=== PATIENT | female | born 1980 | race Caucasian/White ===

== ENCOUNTER 2024-05-08 10:43 | Outpatient (AMB) | payer OTHER, SELFPAY ==
--- NOTE | 2024-05-08 10:45 | MHC.OFFVIS ---
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 Show Card Letterer Required: No Allergies No Known Allergies Allergy (Verified 05/08/24 10:50) Medication List - Last Reconciled 05/08/24 by Jessica Brothers MD hydroxyzine HCl 10 mg PO TID PRN ondansetron 4 mg PO Q8H tirzepatide 2.5 mg subcut QWEEK HPI Comments Details: 44y/o female comes for evaluation of headaches, right am tingling, left shoulder tingling, neck pain. The tingling episodes started about 1 year ago . It was mostly in her right arm , with some shooting sensation . It lasted about 2 days with some throbbing . she did not have headaches or neck pain at that time. The episodes were sporadic 1/week. 6 mths ago she started noticing neck pain, headaches and left shoulder tingling. she was referred to [facility]- had Brain MRI , neck Xray .MS was ruled out. she describes the headaches are occipitoparietal , tingling , with nausea, light sensitvity - feels like a band- can last 2 days . she has 0-1 /week she was taking ibuprofen and now she is on sumatriptan 25mg and prior to that she trialed on fiorinal. she gained 30-50 lbs since she turned 41 . she denies any shooting pain . she sleeps ok - but wake sup at 2am and is awake for 1 hr.No snoring . 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 [facility] Medical History (Updated 05/08/24 @ 11:43 by Jessica Brothers MD) Paresthesias Cervicalgia Tension headache Episodic tension type headache Anxiety and depression Surgical History Previous section Social History Alcohol intake: current Comment: occasional Patient Tobacco Use Status: Former Tobacco user Tobacco use type: Cigarette Physical Exam Vital Signs: Last Vital Signs Pulse 88 05/08/24 10:51 Resp 16 05/08/24 10:51 BMI result Body Mass Index 29.6 Const General: cooperative, healthy appearing and comfortable Nutritional Appearance: average body habitus Orientation/consciousness: patient oriented x3 Neuro Other: Neck - tightness in all muscles with restricted range of motion General: patient oriented x3, gait normal, tone normal and moves all extremities Cranial nerves: Yes Nystagmus not present and Yes Normal facial strength present Cognition (Neuro): normal cognition Gait exam (Neuro): Normal gait present Motor exam (neuro): 5/5 motor strength present throughout and Normal motor muscle tone present throughout Deep tendon reflexes (DTR's): Right triceps reflex intensity grade: 2+, Left triceps reflex intensity grade: 2+, Rt Biceps (C5, C6): 2+, Left biceps reflex intensity grade: 2+, Right brachioradialis reflex intensity grade: 2+, Left brachioradialis reflex intensity grade: 2+, Right patellar reflex intensity grade: 2+ and Left patellar reflex intensity grade: 2+ Coordination: [id number]-gj-[id number] test normal Results Reviewed Results Reviewed: MRI Brain - 11/10 - nonspecific white matter changes X ray neck- normal Assessment & Plan Assessment & Plan (1) Cervicalgia: Code(s): M54.2 - Cervicalgia Category: Medical (2) Tension headache: Code(s): G44.209 - Tension-type headache, unspecified, not intractable Category: Medical (3) Paresthesias: Code(s): R20.2 - Paresthesia of skin Category: Medical Plan Reviewed MRI and X ray reports She started with a chiropractor last week- suggested to continue, Neck exercises i will trial her on flexeril 5mg qhs \ magnesium 400mg qhs Medications: New magnesium oxide 400 mg PO BEDTIME 30 tabs 6RF cyclobenzaprine 5 mg PO BEDTIME 30 tabs 6RF Coding Level of Care Code New Pt Level 4 (52763) Diagnoses Cervicalgia M54.2 Tension headache G44.209 Paresthesias R20.2
[2024-05-08 10:51] VITALS: PULSE 88; RESP 16; BMI 29.6
== END 2024-05-08 11:52 | disposition home or self-care (01) ==
PROVIDERS: PCP Emergency Medicine Emergency Medical Services; Visit Provider Psychiatry & Neurology Neurology
DX: M54.2 Cervicalgia (principal); G44.209 Tension-type headache, unspecified, not intractable; R20.2 Paresthesia of skin
CPT/HCPCS: 99204

== ENCOUNTER → 2024-05-08 10:43 | Outpatient (BNVA) | payer OTHER, SELFPAY | PROVIDERS: PCP Emergency Medicine Emergency Medical Services; Visit Provider Psychiatry & Neurology Neurology | DX: M54.2 Cervicalgia (principal); G44.209 Tension-type headache, unspecified, not intractable; R20.2 Paresthesia of skin | CPT/HCPCS: 99202 ==

== ENCOUNTER 2025-05-20 12:09 | Outpatient (AMB) | payer OTHER, SELFPAY ==
--- NOTE | 2025-05-20 12:26 | MHC.OFFVIS ---
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 1 week before periods she gets episodes of tingling and sometimes headaches.The tingling lasts on and off for few days she has migraines 0-1/month. History from initial visit- 04/2024The tingling episodes started about 1 year ago . It was mostly in her right arm , with some shooting sensation . It lasted about 2 days with some throbbing . she did not have headaches or neck pain at that time. The episodes were sporadic 1/week. 6 mths ago she started noticing neck pain, headaches and left shoulder tingling. she was referred to [facility]- had Brain MRI , neck Xray .MS was ruled out. she describes the headaches are occipitoparietal , tingling , with nausea, light sensitvity - feels like a band- can last 2 days . she has 0-1 /week she was taking ibuprofen and now she is on sumatriptan 25mg and prior to that she trialed on fiorinal. she gained 30-50 lbs since she turned 41 . she denies any shooting pain . she sleeps ok - but wake sup at 2am and is awake for 1 hr.No snoring . 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 [facility] Medical History Paresthesias Cervicalgia Tension headache Episodic tension type headache Anxiety and depression Surgical History Previous section Social History Alcohol intake: current Comment: occasional Patient Tobacco Use Status: Former Tobacco user Tobacco use type: Cigarette Physical Exam Vital Signs: Last Vital Signs Pulse 86 05/20/25 12:28 BP 110/72 05/20/25 12:28 Pulse Ox 100 05/20/25 12:28 Oxygen Delivery Method Room Air 05/20/25 12:28 BMI result Body Mass Index 20.8 Const General: cooperative, healthy appearing and comfortable Nutritional Appearance: average body habitus Orientation/consciousness: patient oriented x3 Neuro Other: Neck - tightness in all muscles with restricted range of motion General: patient oriented x3, gait normal, tone normal and moves all extremities Cranial nerves: Yes Nystagmus not present and Yes Normal facial strength present Cognition (Neuro): normal cognition Gait exam (Neuro): Normal gait present Motor exam (neuro): 5/5 motor strength present throughout and Normal motor muscle tone present throughout Coordination: [id number]-[id number]-ezyd test normal Assessment & Plan Assessment & Plan (1) Cervicalgia: Code(s): M54.2 - Cervicalgia Category: Medical (2) Tension headache: Code(s): G44.209 - Tension-type headache, unspecified, not intractable Category: Medical (3) Paresthesias: Code(s): R20.2 - Paresthesia of skin Category: Medical Plan MRI Brain Sumatriptan 25 mg as needed Vit B 2 400mg qam flexeril 5mg qhs as needed magnesium 400mg qhs Orders: Orders MR head/brain wo con Today M54.2 - Cervicalgia, R20.2 - Paresthesia of skin Medications: New riboflavin (vitamin B2) 400 mg PO QAM 30 tabs 6RF Coding Level of Care Code Est Pt Level 4 (45060) Diagnoses Cervicalgia M54.2 Tension headache G44.209 Paresthesias R20.2
[2025-05-20 12:28] VITALS: BP 110/72; PULSE 86; O2SAT 100; BMI 20.8
--- OUTSIDE RECORDS SUMMARY | 2025-05-20 14:46 | XMS_ITS | Clinical Summary ---
Author Organization [facility] Address [address] [place] [address] Care Team Providers Care Technology Consultant Name Role Phone Yaneli Marquez NP Primary Care Provider [phone] Allergies No known active allergies Medications Medication Sig Dispensed Refills Start Date End Date Status hydrOXYzine (ATARAX) 10 MG tablet Take 1 tablet (10 mg total) by mouth every 12 (twelve) hours as needed. 0 06/26/2023 Active phentermine 15 MG capsule Take 1 capsule (15 mg total) by mouth every morning. 0 12/27/2023 Active Social History Tobacco Use Types Packs/Day Years Used Date Smoking Tobacco: Never Assessed Sex and Gender Information Value Date Recorded Sex Assigned at Not on file Gender Identity Not on file Sexual Orientation Not on file Job Start Date Occupation Industry Not on file Not on file Not on file Last Filed Vital Signs Vital Sign Reading Time Taken Comments Blood Pressure 127/84 01/21/2024 3:08 PM EDT Pulse 86 01/21/2024 3:08 PM EDT Temperature 36.2 C (97.1 F) 01/21/2024 3:08 PM EDT Respiratory Rate - - Oxygen Saturation 98% 01/21/2024 3:08 PM EDT Inhaled Oxygen Concentration - - Weight 80.1 kg (176 lb 9.6 oz) 01/21/2024 3:08 P M EDT Height 162.6 cm (5' 4 ) 01/21/2024 3:08 PM EDT Body Mass Index 30.31 01/21/2024 3:08 PM EDT Plan of Treatment Health Maintenance Due Date Last Done Comments Hepatitis B Vaccines (1 of 3 - 3-dose series) 1981 Hepatitis C Screening 1981 COVID-19 Vaccine (#1) 1981 Depression Screening 1993 BMI Counseling 1999 Preventative Health Evaluation 1999 Cervical Cancer Screening (P ap Smear) 2002 Influenza Vaccine (#1) 2025 DTap / Tdap / Td (2 - Td or Tdap) 07/19/2027 017 Pneumococcal Vaccine Aged Out No long er eligible based on patient's age to complete this topic RSV Ped < 20 months Aged Out No longe r eligible based on patient's age to complete this topic Care Teams Technology Consultant Relationship Specialty Start Date End Date Yaneli Marquez NP [address] [place] [address] PCP - General Family Medicine 11/14/23
--- OUTSIDE RECORDS SUMMARY | 2025-05-20 14:46 | XMS_ITS | Clinical Summary ---
Author Organization [facility] Address [address] [place] [address] Care Team Providers Care Material Requirements Worker Name Role Phone Yaneli Marquez NP Primary Care Provider Allergies No known active allergies Medications magnesium oxide (MAG-OX) 400 mg (241.3 elemental magnesium) tablet Take 1 tablet (400 mg total) by mouth. at bedtime 4 Active tirzepatide, weight loss, (Zepbound) 5 mg/0.5 mL injectionIndicatio ns:Hx of obesity Inject 0.5 mL (5 mg total) under the skin every 7 (seven) days. 2 mL 5 Active SUMAtriptan (IMITREX) 25 mg tabletIndications: Other migraine without status migrainosus, not intractable May repeat dose once in 2 hours if no relief. Do not exceed 2 doses in 24 hours. 9 tablet 2 5 Active ondansetron ODT (ZOFRAN-ODT) 4 mg disintegrating tabletIndications: Other migraine without status migrainosus, not intractable Take 1 tablet (4 mg total) by mouth 1 (one) time each day. 20 tablet 3 5 Active hydrOXYzine HCL (ATARAX) 10 mg tablet Take 1 tablet (10 mg total) by mouth every 12 (twelve) hours if needed for anxiety. 60 tablet 5 Active tirzepatide, weight loss, (Zepbound) 10 mg/0.5 mL injection Inject 0.5 mL (10 mg total) under the skin every 7 (seven) days for 28 days. 2 mL 5 06/10/20 25 Active hydrOXYzine HCL (ATARAX) 10 mg tablet Take 1 tablet (10 mg total) by mouth every 12 (twelve) hours if needed for anxiety. 60 tablet 5 04/24/20 25 Discontin ued(Reord er) ondansetron ODT (ZOFRAN-ODT) 4 mg disintegrating tabletIndications: Other migraine without status migrainosus, not intractable Take 1 tablet (4 mg total) by mouth 1 (one) time each day. 20 tablet 3 5 04/24/20 25 Discontin ued(Reord er) tirzepatide, weight loss, (Zepbound) 10 mg/0.5 mL injection Inject 0.5 mL (10 mg total) under the skin every 7 (seven) days for 28 days. 2 mL 5 05/13/20 25 Discontin ued(Reord er) Active Problems Problem Noted Date Diagnosed Date Class 1 obesity 11/13/2024 Multiple sclerosis (CMS/HCC V24, CMS/HCC V28) Overweight (BMI 25.0-29.9) 06/02/2024 Abnormal EKG 02/08/2023 Overview (11/13/2024): Had QT prolongation; was felt due to transient hypokalemia per cardiology no routine f/u needed Last Assessment & Plan: We did discuss her EKG. The EKG done in our office showed a prolonged QT interval. This was likely due to the fact that her potassium level was very low at that time. She was taking no medications at that time causes. She has no family history of sudden cardiac pacemakers or defibrillators. Her potassium level has subsequently improved. Her EKG today is normal. Again I suspect that this was due to an electrolyte disturbance. She is having no symptoms at this time and needs no further cardiovascular work-up. She will follow-up with us on an as-needed basis. Anxiety and depression 07/12/2022 Episodic tension-type headache, not intractable 02/10/2019 Encounters Date Type Department Care Team Description 05/14/2025 11:30 AM EDT Office Visit Bariatric Surgery [facility] [address] [facility] [address] [place] [address] America Vega PA Hx of obesity (Primary Dx) 04/01/2025 11:00 AM EDT Office Visit Internal Medicine - [facility] [address] [place] [address] Bernadine Lopez, JOSÉ Other migraine without status migrainosus, not intractable (Primary Dx); Benign paroxysmal positional vertigo, unspecified laterality 03/05/2025 9:00 AM EDT Office Visit Bariatric Surgery [facility] [address] [facility] [address] [place] [address] America Vega PA Hx of obesity (Primary Dx) from Last 3 Months Immunizations Name Administration Dates Next Due Tdap Tetanus diptheria acell ular pertussis (Boostrix; Adacel) 7yo and older 07/19/2017 Surgical History Surgery Date Site/Laterality Comments SECTION 2014 PROCEDURE: HISTORICAL DELIVERY Medical History Medical History Date Comments PMS (premenstrual syndrome) DX:P MS (premenstrual syndrome) Family History Medical History Relation Name Comments Depression Father Hyperlipidemia Father Heart attack Maternal Grandfather Other: hodgkins Maternal Grandmother Hyperlipidemia Mother Heart attack Paternal Grandfather Other: alive and well Sister 2 sist ers Other: autism Son Relation Name Status Comments Father Alive Maternal Grandfather Maternal Grandmother Mother Alive Paternal Grandfather Sister Son Alive Social History Tobacco Use Types Packs/Day Years Used Date Smoking Tobacco: Former Smokeless Tobacco: Never Tobacco Cessation:Counseling Given: Not Answered Alcohol Use Standard Drinks/Week Comments Yes 0 (1 standard drink = 0.6 oz pur e alcohol) Comments Unknown Sex and Gender Information Value Date Recorded Sex Assigned at Not on file Legal Sex Female 1:49 PM EDT Gender Identity Female 06/07/2022 1:58 PM EDT Sexual Orientation Straight 06/07/2022 1: 58 PM EDT Obstetrics History Last Filed Vital Signs Vital Sign Reading Time Taken Comments Blood Pressure 104/72 05/14/2025 11:19 AM EDT Pulse 89 05/14/2025 11:19 AM EDT Temperature 36.4 C (97.6 F) 03/05/2025 9:08 AM EDT Respiratory Rate - - Oxygen Saturation 98% 12/15/2024 4:09 PM EDT Inhaled Oxygen Concentration - - Weight 54.5 kg (120 lb 3.2 oz) 05/14/2025 11:19 AM EDT Height 162.6 cm (5' 4 ) 05/14/2025 11:19 AM EDT Body Mass Index 20.63 05/14/2025 11:19 AM EDT Plan of Treatment Upcoming Encounters Date Type Department Care Team (Late st Contact Info) Description 10/14/2025 11:00 AM EST Office Visit Bariatric Surgery - [address] [place] [address] America Vega PA [address] [place] [phone] Health Maintenance Due Date Last Done Comments Breast Cancer Screening 1981 Hepatitis B Vaccines (1 of 3 - 19+ 3-dose series) 02/16/2000 Cholesterol Screening (Lipid Panel) 06/07/2022 HIV Screening 06/07/2022 Hepatitis C Screening 06/07/2022 Social Influencers of Health Screening 06/07/2022 COVID-19 Vaccine (1 - 2023-2 5 season) 2024 Depression Screening 09/17/2024 Influenza Vaccine (#1) 2025 Cervical Cancer Screening: P ap Smear 09/20/2026 09/20/2023 DTaP,Tdap,and Td Vaccines (2 - Td or Tdap) 07/19/2027 07/19/2017 HIB Vaccines Aged Out No longer eligi ble based on patient's age to complete this topic HPV Vaccines Aged Out No longer eligi ble based on patient's age to complete this topic Hepatitis A Vaccines Aged Out No long er eligible based on patient's age to complete this topic IPV Vaccines Aged Out No longer eligi ble based on patient's age to complete this topic MMR Vaccines Aged Out No longer eligi ble based on patient's age to complete this topic Meningococcal ACWY Vaccine Aged Out N o longer eligible based on patient's age to complete this topic Meningococcal B Vaccine Aged Out No l onger eligible based on patient's age to complete this topic Pneumococcal Vaccine: Pediat rics (0 to 5 Years) and At-Risk Patients (6 to 49 Years) Aged Out No longer eligi ble based on patient's age to complete this topic RSV Immunization Patients Un kristin 20 months Aged Out No longer eligible b ased on patient's age to complete this topic Varicella Vaccines Aged Out No longer eligible based on patient's age to complete this topic Procedures Procedure Name Priority Date/Time Associated Diagnosis Comments PAP SMEAR Routine 09/20/2023 from Last 3 Months or Most Recently Relevant to Health Maintenance Results * Pap smear (09/20/2023) 09/20/2023 Narrative HISTORICAL TESTING LAB RESULTING AGENCY - 09/27/2023 6:21 AM EST [id number] THINPREP PAP, IMAGED: NEGATIVE FOR SQUAMOUS INTRAEPITHELIAL LESION AND MALIGNANCY . GREY HSIEH(ASCP) (CASE ELECTRONICALLY SIGNED 09 26 2023) RESULT OF APTIMA HIGH RISK HPV ASSAY: HIGH RISK HPV: NEGATIVE (SEROTYPES 16,18,31,33,35,39,45,51,52,56,58,59,66,68) COMPLETED ON 2023-09-24 ADEQUACY: SATISFACTORY ENDOCERVICAL/TRANSFORMATION ZONE COMPONENT ABSENT. SOURCE: THINPREP PAP HPV ANY DX: REFLEX 16 AND 18, CERVICAL, IMAGED CLINICAL INFORMATION: HPV ANY DIAGNOSIS. HORMONES, LMP 08/28/23, [Z01.419] Maribeth Lyle CNM LAB CYTOLOGY ORDERABLES Jacqueline zuluaga Result HISTORICAL TESTING LAB RESULTING AGENCY from Last 3 Months or Most Recently Relevant to Health Maintenance [place] [address] [place] [address] [employer] Care Teams Material Requirements Worker Relationship Specialty Start Date End Date Yaneli Marquez NP [address] [place] [address] PCP - General 11/14/23
--- OUTSIDE RECORDS SUMMARY | 2025-05-20 14:47 | XMS_ITS ---
Author Name [facility] Organization Unknown History of Medication Use Medication Directions Dispensed Refills Start Date End Date Stat Nwhxekijjp-JBBO-Lng feine 50-300-40 MG CAPS Take 1 tablet by mouth. 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 Supa Herrera [facility] 07/25/20222023
== END 2025-05-20 13:07 | disposition home or self-care (01) ==
LOC: HO.HSMS 12:10
PROVIDERS: PCP Emergency Medicine Emergency Medical Services; Visit Provider Psychiatry & Neurology Neurology
DX: M54.2 Cervicalgia (principal); G44.209 Tension-type headache, unspecified, not intractable; R20.2 Paresthesia of skin
CPT/HCPCS: 99214

== ENCOUNTER → 2025-05-20 12:09 | Outpatient (BNVA) | payer OTHER, SELFPAY | PROVIDERS: PCP Emergency Medicine Emergency Medical Services; Visit Provider Psychiatry & Neurology Neurology | DX: M54.2 Cervicalgia (principal); G44.209 Tension-type headache, unspecified, not intractable; R20.2 Paresthesia of skin | CPT/HCPCS: 99212 ==